=== PATIENT | female | born 1990 | race Caucasian/White ===

== ENCOUNTER 2017-10-27 16:20 | Emergency (ER) | payer OTHER ==
[2017-10-27] MEDS ORDERED: NS 1,000 ML IV ONE ×2 (16:38→17:06)
[2017-10-27] MEDS ORDERED: ONDANSETRON 4 MG/2 ML VIAL IVP ONE (16:38)
[2017-10-27] MEDS ORDERED: KETOROLAC 30 MG/1 ML SDV IVP ONE (17:06)
--- NOTE | 2017-10-27 17:08 | EDPHY ---
H & P Stated Complaint: in [place] last week n/v/d Time Seen by Provider: 10/27/17 16:38 HPI/ROS: CHIEF COMPLAINT: Vomiting and diarrhea HISTORY OF PRESENT ILLNESS: 27-year-old female presents with vomiting and diarrhea. Just return from [place] 1 week ago. Onset diarrhea 5 days ago. Today the diarrhea turned bloody. Associated with moderate abdominal cramping and several episodes of vomiting. Also has dizziness and generalized weakness. Tolerating oral fluids today. No fever. REVIEW OF SYSTEMS: complete 10 point ROS reviewed and is negative except at noted in the HPI - Personal History LMP (Females 10-55): 1-7 Days Ago Current Tetanus Diphtheria and Acellular Pertussis (TDAP): Yes - Medical/Surgical History Hx Asthma: No Hx Chronic Respiratory Disease: No Hx Diabetes: No Hx Cardiac Disease: No Hx Renal Disease: No Hx Cirrhosis: No Hx Alcoholism: No Other PMH: denies - Social History Smoking Status: Never smoked - Physical Exam Exam: General Appearance: Alert, pleasant Eyes: Pupils equal and round, no conjunctival pallor ENT, Mouth: Mucous membranes moist Neck: Normal inspection Respiratory: Lungs are clear to auscultation Cardiovascular: Regular rate and rhythm Gastrointestinal: Abdomen is soft, diffuse mild tenderness Neurological: A&O, nonfocal, normal gait Skin: Warm and dry, no rash Extremities: Normal inspection Psychiatric: Mood and affect normal Constitutional: Initial Vital Signs Temperature (C) 36.9 C 10/27/17 16:23 Heart Rate 105 H 10/27/17 16:23 Respiratory Rate 17 10/27/17 16:23 Blood Pressure 149/94 H 10/27/17 16:23 O2 Sat (%) 100 10/27/17 16:23 O2 Delivery Mode Room Air Allergies/Adverse Reactions: No Known Allergies Allergy (Unverified 10/27/17 16:23) Home Medications: Medication Instructions Recorded Ciprofloxacin [Cipro] 500 mg PO BID #20 tab 10/27/17 Lutera-28 Tablet 10/27/17 Ondansetron Odt [Zofran Odt 4 mg 4 mg PO Q4 PRN #6 tab 10/27/17 (*)] Medical Decision Making ED Course/Re-evaluation: This patient presents with bloody diarrhea after recent trip to [place]. Stool sent for GI pathogen panel. IV normal saline 2 L, Zofran and Toradol IV given. 6:30 p.m.-feels much better after IV fluids and meds. The abdominal exam remains benign. Pt will c/b for GI pathogen panel results. Differential Diagnosis: Differential diagnosis includes though it is not limited to appendicitis, cholecystitis, diverticulitis, pyelonephritis, bowel perforation, small bowel obstruction. - Data Points Laboratory Results: Laboratory Results 10/27/17 16:39 10/27/17 16:39 10/27/17 10/27/17 16:39 16:39 WBC 9.80 10^3/uL H 10^3/uL (3.80-9.50) RBC 5.20 10^6/uL 10^6/uL (4.18-5.33) Hgb 15.8 g/dL g/dL (12.6-16.3) Hct 45.4 % % (38.0-47.0) MCV 87.3 fL fL (81.5-99.8) MCH 30.4 pg pg (27.9-34.1) MCHC 34.8 g/dL g/dL (32.4-36.7) RDW 12.6 % % (11.5-15.2) Plt Count 382 10^3/uL 10^3/uL (150-400) MPV 8.9 fL fL (8.7-11.7) Neut % (Auto) 70.7 % % (39.3-74.2) Lymph % (Auto) 13.3 % L % (15.0-45.0) Mckenzie % (Auto) 14.8 % H % (4.5-13.0) Eos % (Auto) 0.6 % % (0.6-7.6) Baso % (Auto) 0.3 % % (0.3-1.7) Nucleat RBC Rel Count 0.0 % % (0.0-0.2) Absolute Neuts (auto) 6.93 10^3/uL H 10^3/uL (1.70-6.50) Absolute Lymphs (auto) 1.30 10^3/uL 10^3/uL (1.00-3.00) Absolute Monos (auto) 1.45 10^3/uL H 10^3/uL (0.30-0.80) Absolute Eos (auto) 0.06 10^3/uL 10^3/uL (0.03-0.40) Absolute Basos (auto) 0.03 10^3/uL 10^3/uL (0.02-0.10) Absolute Nucleated RBC 0.00 10^3/uL 10^3/uL (0-0.01) Immature Gran % 0.3 % % (0.0-1.1) Immature Gran # 0.03 10^3/uL 10^3/uL (0.00-0.10) Sodium 137 mEq/L mEq/L (135-145) Potassium 4.4 mEq/L mEq/L (3.3-5.0) Chloride 101 mEq/L mEq/L (97-110) Carbon Dioxide 21 mEq/l L mEq/l (22-31) Anion Gap 15 mEq/L mEq/L (8-16) BUN 5 mg/dL L mg/dL (7-23) Creatinine 0.7 mg/dL mg/dL (0.6-1.0) Estimated GFR > 60 Glucose 99 mg/dL mg/dL (70-100) Calcium 9.7 mg/dL mg/dL (8.5-10.4) Microbiology Results: MICROBIOLOGY 10/27/17 16:55 Stool Gastrointestinal Tract Panel (PCR) - Final E.coli Shiga-Like Toxin Pos Medications Given: Discontinued Medications Sodium Chloride (Ns) 1,000 mls @ 0 mls/hr IV EDNOW ONE; Wide Open PRN Reason: Protocol Stop: 10/27/17 16:39 Last Admin: 10/27/17 16:50 Dose: 1,000 mls Sodium Chloride (Ns) 1,000 mls @ 0 mls/hr IV EDNOW ONE; Wide Open PRN Reason: Protocol Stop: 10/27/17 17:07 Last Admin: 10/27/17 17:14 Dose: 1,000 mls Ketorolac Tromethamine (Toradol) 30 mg IVP EDNOW ONE Stop: 10/27/17 17:07 Last Admin: 10/27/17 17:15 Dose: 30 mg Ondansetron HCl (Zofran) 4 mg IVP EDNOW ONE Stop: 10/27/17 16:39 Last Admin: 10/27/17 16:50 Dose: 4 mg Departure - Departure Disposition: Home, Routine, Self-Care Clinical Impression: Acute gastroenteritis, Dehydration Condition: Good Instructions: Traveler's Diarrhea (ED) Additional Instructions: 1. Clear liquids for 24 hours. 2. Advance diet as tolerated. I suggest the BRAT diet to start: bananas, rice, applesauce and toast. 3. Return for worsening symptoms, persistent vomiting, abdominal pain, any concerns. 4. Call in 2-3 hours for stool study results. Do not fill prescription for antibiotics unless we tell you to do so. Referrals: Sandra Narvaez [Primary Care Provider] - As per Instructions Prescriptions: Ciprofloxacin [Cipro] 500 mg PO BID #20 tab Ondansetron Odt [Zofran Odt 4 mg (*)] 4 mg PO Q4 PRN #6 tab PRN Reason: Nausea
[2017-10-27 17:11] LABS: PLATELET COUNT 382 10^3/uL (150-400)
[2017-10-27 19:17] VITALS: BP 132/88
== END 2017-10-27 19:15 | disposition home or self-care (01) ==
DX: K52.9 Noninfective gastroenteritis and colitis, unspecified (principal); E86.9 Volume depletion, unspecified
CPT/HCPCS: 96374; J1885; J2405